=== PATIENT | female | born 1950 | race Caucasian/White ===

== ENCOUNTER → 2019-04-12 | Outpatient (REF) | payer MEDICARE ==
[2019-04-12 17:04] LABS: BLOOD UREA NITROGEN 18 MG/DL (7-18); CALCIUM LEVEL 9.3 MG/DL (8.8-10.2); CARBON DIOXIDE LEVEL 29 MEQ/L (21-32); CHLORIDE LEVEL 110 MEQ/L (98-107); FREE T4 1.08 NG/DL (0.76-1.46); GLOMERULAR FILTRATION RATE > 60.0 (>45); GLUCOSE, FASTING 91 MG/DL (70-100); POTASSIUM SERUM 4.4 MEQ/L (3.5-5.1); SODIUM LEVEL 143 MEQ/L (136-145); THYROID STIMULATING HORMONE 0.628 uIU/ML (0.358-3.740)
== END ==
LOC: M LAB REF 16:19
PROVIDERS: ATTEND Physician Assistant
DX: E66.09 Other obesity due to excess calories (principal); R03.0 Elevated blood-pressure reading, without diagnosis of hypertension; E07.9 Disorder of thyroid, unspecified

== ENCOUNTER → 2019-10-07 | Outpatient (CLI) | payer MEDICARE ==
--- NOTE | 2019-11-12 13:54 | ECGEPIP ---
[facility] Test Date: 2019-10-07 Pat Name: ZAMZAM ZAPIEN Department: Room: - Gender: Female Financial Planning Advisor: JOE : 1950 Requested By: Greg Sanders Order Number: [id number] Reading MD: Tristin Ryan Measurements Intervals [place] Rate: 66 P: 8 NV: 170 QRS: 11 QRSD: 93 T: 8 QT: 380 QTc: 401 Interpretive Statements SINUS RHYTHM NORMAL ECG SEE SCANNED DOWNTIME REPORT
[2019-11-28 10:49] LABS: BASO % 0.4 % (0.0-1.0); EOS # 0.2 10^3/uL (0.0-0.5); HEMATOCRIT 47.2 % (36.0-47.0); HEMOGLOBIN 15.5 g/dl (12.0-15.5); LYMPH # 1.4 10^3/uL (1.5-5.0); LYMPH % 27.2 % (24.0-44.0); MEAN CORPUSCULAR HEMOGLOBIN 28.8 pg (27.0-33.0); MEAN CORPUSCULAR HGB CONC 32.8 g/dl (32.0-36.5); MEAN CORPUSCULAR VOLUME 87.7 fl (80.0-96.0); MONO # 0.6 10^3/uL (0.0-0.8); NEUTROPHILS # 2.9 10^3/uL (1.5-8.5); NEUTROPHILS % 58.2 % (36.0-66.0); PLATELET COUNT, AUTOMATED 232 10^3/uL (150-450); RED BLOOD COUNT 5.38 10^6/uL (4.00-5.40)
[2019-12-01 15:54] LABS: BLOOD UREA NITROGEN 25 MG/DL (7-18); CALCIUM LEVEL 9.9 MG/DL (8.8-10.2); CARBON DIOXIDE LEVEL 29 MEQ/L (21-32); CHLORIDE LEVEL 108 MEQ/L (98-107); CREATININE FOR GFR 0.83 MG/DL (0.55-1.30); GLOMERULAR FILTRATION RATE > 60.0 (>45); GLUCOSE, FASTING 87 MG/DL (70-100); POTASSIUM SERUM 4.4 MEQ/L (3.5-5.1); SODIUM LEVEL 140 MEQ/L (136-145)
== END ==
LOC: M LAB 12:13
PROVIDERS: ATTEND Physician Assistant
DX: Z01.818 Encounter for other preprocedural examination (principal)

== ENCOUNTER → 2019-10-08 | Outpatient (CLI) | payer MEDICARE | LOC: M RAD 10-06 12:22 | PROVIDERS: ATTEND Orthopaedic Surgery | DX: Z01.818 Encounter for other preprocedural examination (principal); M17.11 Unilateral primary osteoarthritis, right knee ==

== ENCOUNTER 2019-10-11 07:45 | Inpatient (IN) | payer MEDICARE ==
[2019-10-11] MEDS ORDERED: ceFAZolin 2 GM/D5W 50 ML IV BAG (J0690 PER 500MG) ONE ×2 (08:03→18:03)
[2019-10-11] MEDS ORDERED: fentaNYL 100 MCG/2 ML INJECTION (J3010) ONE ×2 (08:42→10:05)
[2019-10-11] MEDS ORDERED: MIDAZOLAM INJ 2MG/2ML VIAL (J2250 PER 1MG) ONE ×2 (08:42→10:05)
[2019-10-11] MEDS ORDERED: EPINEPHrine INJ 1 MG/ML 1ML AMP ONE (08:45)
[2019-10-11] MEDS ORDERED: BUPIVACAINE LIPOSOME/PF 1.3% 20ML VIAL (13.3MG/ML)(EXPAREL)(C9290 PER1MG) ONE (08:45)
[2019-10-11] MEDS ORDERED: TRANEXAMIC ACID 100 MG/ML 10ML VIAL ONE (08:45)
[2019-10-11] MEDS ORDERED: ceFAZolin 1GM VIAL (J0690 PER 500MG) ONE (08:45)
[2019-10-11] MEDS ORDERED: ROPIvacaine 0.5% 30ML INJECTION (J2795 PER 1MG) ONE (09:00)
[2019-10-11] MEDS ORDERED: LIDOCAINE 1% MDV 20ML VIAL ONE (09:00)
[2019-10-11] MEDS ORDERED: propofoL 200 MG/20 ML VIAL ONE (10:05)
[2019-10-11] MEDS ORDERED: PHENYLephrine HCL 500 MCG/5 ML (100MCG/ML) SYRINGE (J2370) ONE (10:05)
[2019-10-11] MEDS ORDERED: ONDANSETRON 4MG/2ML VIAL ONE (10:05)
[2019-10-11] MEDS ORDERED: LIDOCAINE 2% 100MG/5ML SDV (FOR ANES.) ONE (10:05)
[2019-10-11] MEDS ORDERED: PERCOCET 5MG/325MG TAB ONE ×2 (13:33→19:07)
[2019-10-11] MEDS ORDERED: MORPHINE 2 MG/ML 1ML VIAL (J2270) ONE (16:15)
[2019-10-11] MEDS ORDERED: RIVAROXABAN 10 MG TAB (XARELTO) ONE (18:03)
[2019-10-12] MEDS ORDERED: PERCOCET 5MG/325MG TAB ONE ×2 (01:29→08:49)
[2019-10-12] MEDS ORDERED: ceFAZolin 2 GM/D5W 50 ML IV BAG (J0690 PER 500MG) ONE (01:29)
[2019-10-12] MEDS ORDERED: MOM 30ML SUSPENSION UDC ONE (08:49)
[2019-10-12] MEDS ORDERED: RIVAROXABAN 10 MG TAB (XARELTO) ONE (08:49)
[2019-10-12] MEDS ORDERED: lisinopriL 20 MG TAB ONE (08:49)
[2019-10-12] MEDS ORDERED: MIRALAX *UNIT DOSE* 17GM PACKET ONE (08:49)
[2019-11-09 10:38] LABS: HEMATOCRIT 43.5 % (36.0-47.0); HEMOGLOBIN 14.4 g/dl (12.0-15.5); MEAN CORPUSCULAR HEMOGLOBIN 29.5 pg (27.0-33.0); MEAN CORPUSCULAR HGB CONC 33.1 g/dl (32.0-36.5); MEAN CORPUSCULAR VOLUME 89.1 fl (80.0-96.0); PLATELET COUNT, AUTOMATED 208 10^3/uL (150-450); RED BLOOD COUNT 4.88 10^6/uL (4.00-5.40); WHITE BLOOD COUNT 6.6 10^3/uL (4.0-10.0)
[2019-11-12 16:01] LABS: ERYTHROCYTE SEDIMENTATION RATE 8 mm/hr (0-30); INR 0.97; PROTHROMBIN TIME 13.1 SECONDS (12.5-14.3)
--- NOTE | 2019-11-17 09:51 | RO ---
DATE OF OPERATION: 10/11/2019 PREOPERATIVE DIAGNOSIS: Left knee osteoarthritis. POSTOPERATIVE DIAGNOSIS: Left knee osteoarthritis. PROCEDURE: Left total knee arthroplasty using a Attune rotator platform cruciate retaining size 3 femur, size 3 tibia, 8 polyethylene 32 patellar button. SURGEON: Kang Harvey MD RETAIL SALES PROFESSIONAL: STEF Viramontes ANESTHESIA: Spinal. ESTIMATED BLOOD LOSS: 50 ml COMPLICATIONS: None. INDICATIONS: This is a woman in her mid to late 60s, who has had some persistent pain in her left knee. She wished to go ahead with a knee replacement having failed conservative management. She had severe arthritis. PROCEDURE: The patient was taken to the operating room, placed in the supine position. After spinal anesthesia was induced, the left lower extremity was prepped and draped in the usual sterile fashion. A time-out was performed. Tourniquet was inflated. I then created a longitudinal incision over the anterior aspect of the knee. Sharp dissection was carried down through the subcutaneous tissue until the fascia was encountered. A medial parapatellar arthrotomy was performed. I everted the patella, removed any osteophytes. I used the canal initiating reamer on the femoral size followed by the intramedullary guide set at 5 degrees of valgus and a 9 mm cut. This was pinned in place and the distal femoral cut was made. The sizing guide was then used on the femur and a size 3 was noted. The drill holes were placed in the end of the femur with external rotation dialed in, the cutting block was secured and the remaining 4 cuts were made in the usual fashion protecting soft tissues. We then prepared the tibia. The tibia alignment guide was placed and the appropriate amount of valgus and posterior slope and this was pinned in place at about 4 mm at the low side. The proximal tibia cut was made. I then used a hospital manager to remove soft tissues and osteophytes from either side of the knee and we then used spacer blocks to determine the polyethylene thickness and estimated it to be an 8 polyethylene. The tibia was prepared. The tibial tray size 3 fit quite nicely. This was pinned in place and the proximal tibia was then drilled, broached. The trial components were then placed. The femur fit very nicely. The polyethylene was inserted and there was excellent soft tissue and excellent range of motion. PCR remained intact. I then free hand cut the patella moving about 7 mm of bone sized to be a 32, drill holes were placed and the 32 patellar button was placed. This tracked very nicely. We then drilled the holes in the end of the femur and the application assistant prepared the bone cement in the modern technique. The components were then cemented in place. All excess bone cement was removed. The patella was held in place with a clamp and excess bone cement was removed. I irrigated, placed the Exparel and TXA in the deep tissues. Once the cement had hardened, I removed the patellar clamp and irrigated and closed the deep layer with 1-Vicryl suture and running STRATFIX suture obtaining a watertight closure. Again irrigated, closed subcuticular with 2-0 Vicryl and the skin with aneudy. A sterile dressing was applied. The tourniquet had been deflated when the cement had hardened. She was taken to the recovery room in stable condition. There were no known complications. The plan will be routine postop The application assistant was instrumental in hold retractors and assisting and mixing the bone cement and assisting in wound closure. VICTORIA
--- NOTE | 2019-11-18 09:40 | REP ---
PORTABLE LEFT KNEE: 2-VIEWS HISTORY: Postop. FINDINGS: Portable AP and cross-table lateral views of the left knee demonstrate anterior skin aneudy. Periarticular soft tissue emphysema is seen. Patellar, femoral, and tibial prosthetic components are well aligned. MTDD
--- NOTE | 2019-12-03 09:05 | RO ---
Date of Operation: October 11, 2019 Pre-op diagnosis: Left knee osteoarthritis. Post-op diagnosis: Left knee osteoarthritis. Procedure: Left total knee arthroplasty using an ATTUNE rotating platform cruciate-retaining, size 3 femur, size 3 tibia, 8 polyethylene, 32 patellar button. SURGEON: Kang Harvey M.D. WHOLESALE DIAMOND BROKER: Celia Paulino ANESTHESIA: Spinal. ESTIMATED BLOOD LOSS: 50. COMPLICATIONS: None. INDICATIONS: This is a woman in her mid to late 60s who wished to go ahead with a knee replacement. She has severe arthritis and understood the nature and risks. PROCEDURE: The patient was taken to the operating room and placed in the supine position after spinal anesthesia was induced. The left lower extremity was prepped and draped in the usual sterile fashion. A timeout was performed, tourniquet was inflated. A longitudinal incision was made over the anterior aspect of the knee. Sharp dissection was carried down through subcutaneous tissue. A medial parapatellar arthrotomy was performed. I everted the patella, flexed the knee up, used the canal initiating reamer, and followed by the intramedullary guide set at 5 of valgus and a 9-mm cut. This was pinned in place and a distal femoral cut was made. I then sized the femur to be a 3. Drill holes were placed in the end of the femur in the usual fashion and external rotation. The cutting block was secured as the remaining cuts were made. I protected soft tissue. I then placed a posterior retractor and made the proximal tibial cut with the appropriate amount of valgus and posterior slope dialed in with the external alignment guide. Then, 4 mm was taken off of the low side. The proximal tibia cut was made. I removed the excess bone and then used a maintenance construction helper to remove soft tissue and osteophytes from either side of the knee. The sulcus cut was made on the femur with a guide. The tibial tray was then prepared. Size 3 fit nicely. I drilled and broached. Prior to this, I used the spacer blocks and was pleased with the soft tissue balance. I did have to take a little bit more bone off some sclerotic bone on the medial tibial plateau, but the alignment and soft tissue balance was excellent with a size 8 in flexion and extension. I then placed the trial components. They all fit very nicely and the soft tissue balance was excellent. I free-hand cut the patella, removing about 7-mm of bone and sized to be a 32. The drill holes were placed. The drills holes were placed in the end of the femur. I removed the trial components and irrigated copiously. I placed the Exparel in the deep tissues. The cafe assistant prepared the bone cement in the modern technique. Once the surfaces were dried, I irrigated and placed the TXA, repaired the deep layer with #1 Vicryl sutures and a running Stratafix. The patella tracked very nicely. The clamp had been removed once the cement had hardened and made sure the patella tracked well. Running Stratafix was used. I did a final deep irrigation and then irrigated the subcutaneous, closed the subcutaneous with 2-0 Vicryl and the skin with aneudy. Sterile dressings were applied. The tourniquet was deflated once the cement had hardened and she was taken to the recovery room in stable condition. There were no known complications. The plan will be routine postoperative. The cafe assistant was instrumental in holding the retractors and assisting in mixing the bone cement and assisting in wound closure. This was coded as an unusually difficult procedure. The patient's BMI was approximately 39 and she had a significantly obese leg which added to the difficulty of dissection, eversion of the patella, and added to the time of the case. It made it significantly more difficult. VICTORIA
--- NOTE | 2019-12-03 12:33 | IPN ---
DATE: 10/11/2019 Patient was seen and examined. She wishes to go ahead with the left total knee arthroplasty. She understands the nature of this and the risks of bleeding, infection, damage to nerves/vessels, persistent pain, wear, loosening, blood clots, medical problems and , among others. She understands her weight puts her at increased risk of perioperative complications. VICTORIA
== END 2019-10-12 11:45 | disposition home or self-care (01) | DRG 470 ==
LOC: M MS5PR 07:45
PROVIDERS: ADMIT Orthopaedic Surgery; ATTEND Orthopaedic Surgery
PROC: 0SRD0J9 Replacement of Left Knee Joint with Synthetic Substitute, Cemented, Open Approach (ICD-10-PCS; principal; 2019-10-11)
DX: M17.12 Unilateral primary osteoarthritis, left knee (principal); I10 Essential (primary) hypertension; Z79.899 Other long term (current) drug therapy

== ENCOUNTER → 2020-12-05 | Outpatient (CLI) | payer MEDICARE ==
--- NOTE | 2020-12-05 14:06 | REPMRS ---
Patient History The patient states she has not had a clinical breast exam in over a year. No known family history of cancer. Tomosynthesis is performed. Volpara breast density is a. [facility] lifetime risk of breast cancer 5.5%. Baseline @ 70 No breast complaints today No vaccine Patient Identification Verified Digital Woman Screen Mammo: December 05, 2020 - Exam #: [id number] Bilateral CC and MLO view(s) were taken. Technologist: Beulah Neal, Technologist No prior studies available for comparison. FINDINGS: There are scattered fibroglandular densities. There is a mild amount of residual fibroglandular tissue which is fairly symmetric. There is no dominant mass, architectural distortion, or clustered microcalcification suggestive of malignancy. Assessment: BI-RADS/ACR category 1 mammogram. Negative Mammogram. Recommendation Routine screening mammogram in 1 year (for women over age 40). This mammogram was interpreted with the aid of an FDA-approved computer-aided dectection system. Electronically Signed By: Percy Borges MD 12/05/20 [id number]
--- NOTE | 2020-12-05 14:49 | DEXAMM ---
INDICATION: ASYMPTOMATIC MENOPAUSAL STATE SCREEN OSTEOPOROSIS. COMPARISON: None. TECHNIQUE: Bone density was measured using dual-energy x-ray absorptiometry (DEXA). FINDINGS: AP SPINE L1-L4 BMD 1.366 g/cm2 Young Adult T-Score 1.4 Age Matched Z-Score 3.0. LT FEMUR, TOTAL BMD 0.923 g/cm2 Young Adult T-Score -0.7 Age Matched Z-Score 0.7. LT NECK BMD 0.841 g/cm2 Young Adult T-Score -1.4 Age Matched Z-Score 0.2. RT FEMUR, TOTAL BMD 0.923 g/cm2 Young Adult T-Score -0.7 Age Matched Z-Score 0.7. RT NECK BMD 0.804 g/cm2 Young Adult T-Score -1.7 Age Matched Z-Score -0.1. IMPRESSION: There is normal bone density of the spine. There is low bone density of the left hip. There is low bone density of the right hip. FOLLOW-UP: Recommendation for the next bone density exam: 2 years. <Electronically signed by Percy Borges > 12/05/20 [id number]
== END ==
LOC: M WHC 12:39
PROVIDERS: ATTEND Physician Assistant
DX: Z12.31 Encounter for screening mammogram for malignant neoplasm of breast (principal); Z78.0 Asymptomatic menopausal state

== ENCOUNTER 2021-02-28 09:16 | Outpatient (CLI) | payer MEDICARE ==
[~2021-02-28] VITALS: Ht 157.5 cm; Wt 87.5 kg
[~2021-02-28 09:16] MED LIST: ACETAMINOPHEN TAB 650MG DOSE (2X325MG) PO PRN; ALBUTEROL 90 MCG/ACT 8GM HFA INHALER INH PRN; ALBUTEROL SULFATE 2.5 MG/0.5 ML INH NEB SOLN INH PRN; EPINEPHrine INJ 1 MG/ML 1ML AMP IM PRN; NS 1,000 ML IV SCH; diphenhydrAMINE 50MG/ML VIAL (J1200) IV PRN; methylPREDNISolone 125MG 2ML VIAL IV PRN
[2021-02-28 09:56] VITALS: BP 123/68
[2021-02-28] MEDS ORDERED: CASIRIVIMAB/IMDEVIMAB 1,200 MG in NS 250 ML IV ONE (10:00)
[2021-02-28 10:26] VITALS: BP 115/67
[2021-02-28 10:56] VITALS: BP 136/68
[2021-02-28 11:56] VITALS: BP 149/81
== END 2021-02-28 11:56 | disposition home or self-care (01) ==
LOC: M OPCLI4PR 09:16
PROVIDERS: ATTEND Physician Assistant
DX: U07.1 COVID-19 (principal)

== ENCOUNTER → 2021-08-21 | Outpatient (REF) | payer MEDICARE | LOC: M SFHCWAGY 17:27 | PROVIDERS: ATTEND Obstetrics & Gynecology | DX: L72.0 Epidermal cyst (principal) ==